=== PATIENT | male | born 1965 | race African-American/Black ===

== ENCOUNTER 2021-11-13 07:05 | Emergency (ER) | payer OTHER ==
[~2021-11-13] VITALS: Ht 180.3 cm; Wt 86.2 kg
[~2021-11-13 07:05] MED LIST: GLIPIZIDE5 MG BC
[2021-11-13] MEDS ORDERED: FLUCONAZOLE100 MG PO (10:56)
== END 2021-11-13 13:17 | disposition home or self-care (01) ==
LOC: ER 07:05
DX: L03.031 Cellulitis of right toe (principal)